=== PATIENT | female | born 1950 | race Caucasian/White ===

== ENCOUNTER → 2018-12-07 11:13 | Outpatient (CLI) | payer MEDICARE, OTHER, SELFPAY | PROVIDERS: Family Provider Internal Medicine; PCP Internal Medicine; Referring Provider Nurse Practitioner; Visit Provider Nurse Practitioner | DX: R00.2 Palpitations (principal) | CPT/HCPCS: 93225; 93226 ==

== ENCOUNTER 2020-06-13 11:25 | Outpatient (RCR) | payer MEDICARE, OTHER, SELFPAY ==
[2013-04-10 20:05] VITALS: BMI 25.0
== END 2020-06-13 23:59 ==
LOC: IMMUN 11:25
PROVIDERS: PCP Internal Medicine; Referring Provider Family Medicine; Visit Provider Family Medicine
DX: Z23 Encounter for immunization (principal)
CPT/HCPCS: 0011A; 0012A; 91301

== ENCOUNTER → 2021-03-21 08:11 | Outpatient (CLI) | payer MEDICARE, OTHER, SELFPAY ==
--- NOTE | 2021-03-21 08:13 | CT_ITS ---
STUDY: LOW DOSE CT LUNG CANCER SCREENING REASON FOR EXAM: Female, 70 years old. SMOKER. One pack per day for 40 years. RADIATION DOSAGE (If Supplied By Facility): CTDIvol = ( 1.59 ) mGy, DLP = ( 57.98 ) mGycm TECHNIQUE: No contrast was administered. Low dose technique was utilized (average mAS-38 and kVp 120). 1.25 mm axial source images with a slice interval of 1.25-mm were reconstructed in lung windows. 2.5 mm axial source images with a slice interval of 2.5-mm were reconstructed in lung windows. 5.0 mm axial source images with a slice interval of 5.0-mm were reconstructed in soft tissue windows. Nodule measured using lung windows on PACS and/or independent workstation with automated measurement of minimum and maximum diameter. Nodule measurement reported as average diameter rounded to the nearest whole number. Growth is defined as an increase ins size of greater than 1.5 mm. COMPARISON: None. NODULES: No suspicious nodules are seen. Emphysema: Emphysematous changes. Mild scarring at the right lung apex. Endobronchial lesion: None Aorta: Atherosclerotic plaque calcification. Coronary arteries: Coronary artery calcification. Heart: Unremarkable Pulmonary artery: Unremarkable Mediastinal nodes: Small mediastinal lymph nodes. Other chest and abdominal findings: CT/Low Dose CT Lung Screening IMPRESSION: Lung-RADS category 2 - Continue annual screening with LDCT in 12 months. IMPORTANT NOTES FOR USE: ACR Lung-RADS Version 1.1 Assessment Categories Release Date: 2018 Category: Coded 0-4 bases on nodule(s) with highest degree of suspicion. Negative screen is defined as categories 1 and 2; a positive screen is defined as categories 3 and 4. Category 3 and 4A nodules that are unchanged on interval CT should be coded as category 2, and individuals returned to screening in 12 months. Category 4X: Category 3 or 4 nodules with additional imaging findings that increase the suspicion of lung cancer, such as spiculation, GGN that doubles in size in 1 year, enlarged lymph notes, etc. Category Modifiers: S (significant finding unrelated to lung cancer) Electronically Signed: Jose Nicole MD at 14:01 EST , Service support ,
== END ==
PROVIDERS: PCP Internal Medicine; Referring Provider Internal Medicine; Visit Provider Internal Medicine
DX: Z12.2 Encounter for screening for malignant neoplasm of respiratory organs (principal); F17.210 Nicotine dependence, cigarettes, uncomplicated
CPT/HCPCS: 71271

== ENCOUNTER → 2022-06-04 | Outpatient (CLI) | payer MEDICARE, OTHER, SELFPAY ==
--- NOTE | 2022-06-04 08:44 | CDU_ITS ---
Reason For Study: Lt Carotid Bruit Rt. Velocities/BP Lt. Velocities/BP Prox CCA 64/16 cm/sec. Prox CCA 59/17 cm/sec. Mid CCA 65/16 cm/sec. Mid CCA 61/23 cm/sec. Dist CCA 53/16 cm/sec. Dist CCA 64/20 cm/sec. Prox ICA 71/20 cm/sec. Prox ICA 90/20 cm/sec. Mid ICA 53/20 cm/sec. Mid ICA 78/27 cm/sec. Dist ICA 102/39 cm/sec. Dist ICA 78/23 cm/sec. Rt. ICA/CCA = 1.6. Lt. ICA/CCA = 1.5. Prox ECA 188/20 cm/sec. Prox ECA 109/19 cm/sec. Rt. Vert. 23/5 cm/sec. Lt. Vert. 30/10 cm/sec. Right Extracranial There is heterogeneous, irregular atherosclerotic plaque noted in the right common carotid artery. There is heterogeneous, irregular atherosclerotic plaque noted in the right internal carotid artery. There is heterogeneous, irregular atherosclerotic plaque noted in the right external carotid artery. Antegrade flow is noted in the right vertebral artery. Left Extracranial There is heterogeneous, irregular atherosclerotic plaque noted in the left common carotid artery. There is heterogeneous, irregular atherosclerotic plaque noted in the left internal carotid artery. The atherosclerotic plaque causes acoustic shadowing. There is heterogeneous, irregular atherosclerotic plaque noted in the left external carotid artery. Antegrade flow is noted in the left vertebral artery. Procedure Carotid Duplex [id number]. This is a Carotid Duplex examination using B-mode, color flow and specral Doppler. Exam performed in department. VL/Carotid Duplex Ultrasound Interpretation Summary Irregular calcific plaque at the proximal right internal carotid artery with le ss than 50% stenosis Less than 50% stenosis right external carotid artery Irregular calcific plaque left distal common carotid artery and internal caroti d artery and external carotid artery with shadowing. Less than 50% stenosis left internal carotid artery Less than 50% stenosis left external carotid artery Patent and antegrade bilateral vertebral arteries Ordering Physician: Jazz Rios Referring Physician: Jazz Rios Performed By: Lien Puckett, ARUN, RVT
== END | disposition home or self-care (01) ==
LOC: CVS 08:43
PROVIDERS: PCP Internal Medicine; Referring Provider Internal Medicine; Visit Provider Internal Medicine
DX: R09.89 Other specified symptoms and signs involving the circulatory and respiratory systems (principal)
CPT/HCPCS: 93880

== ENCOUNTER → 2024-06-24 | Outpatient (CLI) | payer MEDICARE, OTHER, SELFPAY | END | disposition home or self-care (01) | LOC: PSN 08:39 | PROVIDERS: PCP Internal Medicine; Referring Provider Internal Medicine; Visit Provider Internal Medicine | DX: Z51.81 Encounter for therapeutic drug level monitoring (principal) | CPT/HCPCS: 93225; 93226 ==

== ENCOUNTER → 2024-06-27 | Outpatient (CLI) | payer MEDICARE, OTHER, SELFPAY ==
--- NOTE | 2024-06-27 12:25 | STRESSREP_ITS ---
Stress Test Report Date: 06/27/2024 Procedure: Pharmacologic stress nuclear imaging study Indications: CAD Consent: Per the patient Procedure: The patient underwent pharmacologic (Regadenoson) evaluation with a peak heart rate of 86 beats per minute (59%predicted maximal heart rate) and a peak blood pressure of 130/62 mmHg. The baseline ECG demonstrated normal sinus rhythm. EKG during lexiscan infusion revealed no significant ischemic changes. EKG post infusion revealed no significant ischemic changes [There were no cardiac dysrhythmias pretest, during pharmacologic infusion, or recovery]. [There was no complaint of chest discomfort during pharmacologic infusion or recovery]. The examination was discontinued secondary to completion of protocol. Impression: 1. Lexiscan stress test test is negative for Lexiscan infusion induced EKG changes of ischemia. 2. Lexiscan stress test test is negative for Lexiscan infusion induced chest pain. 3. Results of the nuclear portion of the test is as below Myocardial perfusion imaging study: Technique: The patient was injected with 11.5 millicuries of technetium 99m Cardiolite and subsequently rest SPECT Cardiolite nuclear imaging was obtained in the horizontal long, vertical long, and short axis views. The patient underwent pharmacologic [Regadenoson 0.4mg] evaluation. Please see above for details. The patient was injected with 33.3 millicuries of technetium 99m Cardiolite and subsequently stress SPECT Cardiolite nuclear imaging was obtained in the horizontal long, vertical long, and short axis views. A gated Cardiolite study at peak stress was obtained. Interpretation: Rest and stress SPECT Cardiolite nuclear imaging status post realignment, normalization, and attenuation correction demonstrate no evidence of significant ischemia or infarction. Gated images reveal no significant regional wall motion abnormalities. The reported LVEF is greater than 70%. Impression: 1. There is no evidence of significant ischemia or infarction. 2. Estimated ejection fraction is greater than 70%. This note was generated with Content[employer]ation software. It may contain incorrect words, spelling, and punctuation that were not noted in checking the note before signing.
== END | disposition home or self-care (01) ==
LOC: CVS 07:14
PROVIDERS: PCP Internal Medicine; Referring Provider Internal Medicine; Visit Provider Internal Medicine
DX: I25.10 Atherosclerotic heart disease of native coronary artery without angina pectoris (principal)
CPT/HCPCS: 78452; 93017; A9500; A4216; J2785

== ENCOUNTER → 2024-07-02 | Outpatient (CLI) | payer MEDICARE, OTHER, SELFPAY ==
--- NOTE | 2024-07-02 08:36 | CT_ITS ---
PROCEDURE: LOW DOSE CT LUNG SCREENING REASON FOR EXAM: NICOTINE DEPENDENCE TECHNIQUE: Low Dose CT Lung screening without contrast. Coronal and Sagittal reconstruction series were provided. One or more dose reduction techniques were used (e.g., Automated exposure control, adjustment of the mA and/or kV according to patient size, use of iterative reconstruction technique). COMPARISON: None. FINDINGS: Heart size is within normal limits. Heavy three-vessel coronary artery calcifications. No significant pericardial effusion. Calcified nonaneurysmal thoracic aorta. Normal caliber pulmonary arteries. No bulky adenopathy. No acute findings in the visualized upper abdomen. Superficial soft tissues are within normal limits. Central airways are patent. No acute infiltrates, pleural effusion or pneumothorax. No suspicious pulmonary nodule or mass. No acute osseous abnormality. Mild degenerative changes of the spine. CT/Low Dose CT Lung Screening IMPRESSION: 1. No suspicious pulmonary nodule or mass. 2. Coronary artery disease. Lung-RADS Category: 1. Recommend continued annual lung cancer screening. Other Significant Findings: None. Reading Location: [facility]
== END | disposition home or self-care (01) ==
LOC: CT 08:34
PROVIDERS: PCP Internal Medicine; Referring Provider Internal Medicine; Visit Provider Internal Medicine
DX: Z12.2 Encounter for screening for malignant neoplasm of respiratory organs (principal); F17.210 Nicotine dependence, cigarettes, uncomplicated
CPT/HCPCS: 71271

== ENCOUNTER → 2024-08-09 | Outpatient (CLI) | payer MEDICARE, OTHER, SELFPAY ==
--- NOTE | 2024-08-09 09:45 | ECHOD_ITS ---
Reason For Study Reason For Study: AORTIC VALVE DISORDERS Procedure This was a 2D Doppler, Color Flow transthoracic echocardiogram. Exam performed in department. Left Ventricle Normal LV size. Left ventricular systolic function is normal. The left ventricular ejection fraction is 60 %. Stage 1 diastolic dysfunction. No regional wall motion abnormalities noted. Right Ventricle Normal RV size. Normal systolic function. Atria Normal left atrium. Normal right atrium. Mitral Valve Normal mitral valve. Tricuspid Valve Normal tricuspid valve. Mild tricuspid valve insufficiency. Pulmonary artery systolic pressure is 25 mmHg. Aortic Valve Trisinus/trileaflet aortic valve. Mild focal aortic valve calcification. Pulmonic Valve Normal pulmonic valve. Great Vessels Normal aortic root. The pulmonary artery is normal size. Inferior vena cava collapse with respiration. Pericardium/Pleural No pericardial effusion. MMode/2D Measurements & Calculations LVIDd: 3.9 cm IVSd: 0.96 cm Ao root diam: 3.0 cm LVIDs: 2.6 cm LVPWd: 0.99 cm RVDd: 3.0 cm FS: 34.2 % LAV(MOD-bp): 24.1 ml LVAd ap4: 23.2 cm2 SV(MOD-sp4): 40.2 ml LAV(MOD-bp) Indexed: 13.9 ml/m2 LVLd ap4: 6.5 cm SI(MOD-sp4): 23.3 ml/m2 LAV(MOD-sp2): 22.1 ml EDV(MOD-sp4): 66.0 ml LAV(MOD-sp4): 23.8 ml EDV(sp4-el): 69.7 ml LVAs ap4: 12.9 cm2 LVLs ap4: 5.5 cm ESV(MOD-sp4): 25.7 ml ESV(sp4-el): 26.0 ml EF(MOD-sp4): 61.0 % EF(sp4-el): 62.7 % SV(sp4-el): 43.7 ml LA A4 area: 11.1 cm2 LA dimension(2D): 3.0 cm RA A4 area: 11.0 cm2 TAPSE: 1.8 cm Time Measurements MV dec time: 0.18 sec Doppler Measurements & Calculations MV E max umair: 61.8 cm/sec Lat Peak E' Umair: 9.1 cm/sec Med Peak E' Umair: 6.5 cm/sec MV A max umair: 67.8 cm/sec E/E' lat: 6.8 E/E' med: 9.5 MV E/A: 0.91 Ao V2 max: 111.4 cm/sec LV V1 max: 105.4 cm/sec PA V2 max: 75.5 cm/sec Ao max P.0 mmHg LV V1 max P.4 mmHg TR max umair: 238.2 cm/sec TR max P.7 mmHg ECHO/Echo Complete Interpretation Summary Normal LV size. Left ventricular systolic function is normal. The left ventricular ejection fraction is 60 %. Stage 1 diastolic dysfunction. Structurally normal valves. Ordering Physician: Jzaz Rios Referring Physician: Jazz Rios Performed By: Mahnaz Ramsey RDCS
== END | disposition home or self-care (01) ==
LOC: CVS 09:44
PROVIDERS: PCP Internal Medicine; Referring Provider Internal Medicine; Visit Provider Internal Medicine
DX: I35.8 Other nonrheumatic aortic valve disorders (principal)
CPT/HCPCS: 93306